=== PATIENT | female | born 1975 | race Caucasian/White ===

== ENCOUNTER 2022-04-26 08:09 | Emergency (ER) | payer OTHER ==
[2022-04-26 08:13] VITALS: BP 126/87; PULSE 96; TEMP 97.7; BMI 27.2
[2022-04-26] MEDS ORDERED: LIDOCAINE 5% TOPICAL PATCH TP ONE (09:29)
[2022-04-26] MEDS ORDERED: diazePAM 5 MG TABLET PO ONE (09:30)
[2022-04-26] MEDS ORDERED: KETOROLAC TROMETHAMINE 30 MG/1 ML VIAL IM ONE (09:30)
[2022-04-26] MEDS ORDERED: LIDOCAINE 5% TOPICAL PATCH ONE (09:31)
[2022-04-26] MEDS ORDERED: diazePAM 5 MG TABLET ONE (09:32)
[2022-04-26] MEDS ORDERED: KETOROLAC TROMETHAMINE 30 MG/1 ML VIAL ONE (09:32)
[2022-04-26] MEDS ORDERED: LIDOCAINE PATCH REMOVAL MC SCH (22:00)
== END 2022-04-26 11:40 | disposition home or self-care (01) ==
LOC: JERFT 08:09
PROC: 3E0233Z Introduction of Anti-inflammatory into Muscle, Percutaneous Approach (ICD-10-PCS; principal; 2022-04-26)
DX: M51.36 Other intervertebral disc degeneration, lumbar region (principal); M51.26 Other intervertebral disc displacement, lumbar region; M54.50 Low back pain, unspecified
CPT/HCPCS: 72131-TC; 99284-25